=== PATIENT | female | born 1980 | race Caucasian/White ===

== ENCOUNTER 2017-09-22 16:15 | Emergency (ER) | payer MEDICAID ==
[~2017-09-22] VITALS: Ht 165.1 cm; Wt 93.0 kg
[2017-09-22] MEDS ORDERED: metformin (16:26)
[2017-09-22 17:25] VITALS: BP 132/76
[2017-09-22] MEDS ORDERED: DIPHENHYDRAMINE 25MG CAPSULE PO ONE (17:30)
== END 2017-09-22 17:30 | disposition home or self-care (01) ==
LOC: ER 16:15
DX: L50.9 Urticaria, unspecified (principal); E11.9 Type 2 diabetes mellitus without complications; Z79.84 Long term (current) use of oral hypoglycemic drugs
CPT/HCPCS: 99282; Q0163

== ENCOUNTER 2018-02-26 16:05 | Emergency (ER) | payer MEDICAID ==
[~2018-02-26] VITALS: Ht 162.6 cm; Wt 94.0 kg
[~2018-02-26 16:05] MED LIST: metformin
[2018-02-26 17:19] VITALS: BP 128/74
[2018-02-26 18:47] LABS: CLARITY URINE CLEAR (CLEAR); COLOR URINE ORANGE (YELLOW); KETONES URINE NEGATIVE (NEGATIVE); LEUKOCYTE ESTERASE URINE 1+ (NEGATIVE); NITRITE URINE NEGATIVE (NEGATIVE); OCCULT BLOOD URINE 3+ (NEGATIVE); PH URINE 6.5 (4.5-8.0); PROTEIN URINE NEGATIVE (NEGATIVE); SPECIFIC GRAVITY URINE 1.041 (1.005-1.030); UROBILINOGEN URINE 0.2 E.U./dL (0.2-1.0)
== END 2018-02-26 20:49 | disposition left against medical advice (07) ==
LOC: ER 16:05
DX: R30.0 Dysuria (principal); R10.30 Lower abdominal pain, unspecified
CPT/HCPCS: 81003; 99283